=== PATIENT | male | born 1980 | race Caucasian/White ===

== ENCOUNTER 2017-01-16 23:31 | Inpatient (IN) | payer MEDICAID ==
[~2017-01-16] VITALS: Ht 172.7 cm; Wt 93.7 kg
[2017-01-17 01:29] LABS: BASOPHIL % 0.4 % (0-2); PLATELET COUNT 180 x10^3mcL (130-400); RED CELL DISTRIBUTION WIDTH 12.8 % (11.5-14.5)
[2017-01-17 01:40] LABS: CALCIUM 9.4 mg/dL (8.5-10.1); CARBON DIOXIDE 27.6 mmol/L (21-32); CHLORIDE SERUM 103 mmol/L (98-107); CREATININE SERUM 1.2 mg/dL (0.7-1.3); GFR1 > 60 mL/min; GLUCOSE SERUM 146 mg/dL (74-106); POTASSIUM SERUM 3.9 mmol/L (3.5-5.1); SODIUM SERUM 136 mmol/L (136-145)
[2017-01-17 01:48] LABS: ALBUMIN 4.1 g/dL (3.4-5.0); ALKALINE PHOSPHATASE 97 U/L (46-116); ALT/SGPT 29 U/L (16-63); AMYLASE 52 U/L (25-115); AST/SGOT 24 U/L (15-37); BILIRUBIN TOTAL 0.92 mg/dL (0.20-1.00); LIPASE 89 IU/L (73-393); TOTAL PROTEIN, SERUM 7.7 g/dL (6.4-8.2)
[2017-01-17 05:35] LABS: UA SPECIFIC GRAVITY >=1.030 (1.005-1.035); microscopic required? YES; urine erythrocyte NEGATIVE (NEGATIVE)
[2017-01-17 06:17] LABS: CHOLESTEROL/HDL RATIO 3.3; MAGNESIUM 2.3 mg/dL (1.8-2.4); PHOSPHOROUS 3.7 mg/dL (2.5-4.9)
[2017-01-17 06:22] LABS: FREE T4 0.88 ng/dL (0.76-1.46); FREE THYROXINE INDEX 2.2 ug/dL (1.4-4.5); T4(THYROXINE) 6.6 ug/dL (4.7-13.3)
[2017-01-17 06:28] LABS: AMPHETAMINE QUAL UR NONE DETECTED (NEG <=1000)
[2017-01-17 06:29] LABS: T3 TOTAL 1.13 ng/mL
[2017-01-17 08:24] VITALS: BP 125/85
[2017-01-17 13:22] VITALS: BP 110/73
[2017-01-17 18:21] VITALS: BP 111/63
[2017-01-17 22:05] VITALS: BP 105/64
[2017-01-18 06:23] VITALS: BP 103/64
[2017-01-18 06:31] LABS: BASOPHIL % 0.5 % (0-2); PLATELET COUNT 164 x10^3mcL (130-400)
[2017-01-18 06:49] LABS: CALCIUM 8.6 mg/dL (8.5-10.1); CARBON DIOXIDE 26.8 mmol/L (21-32); CHLORIDE SERUM 109 mmol/L (98-107); GFR1 > 60 mL/min; GLUCOSE SERUM 98 mg/dL (74-106); MAGNESIUM 2.2 mg/dL (1.8-2.4); PHOSPHOROUS 3.2 mg/dL (2.5-4.9); POTASSIUM SERUM 4.1 mmol/L (3.5-5.1); SODIUM SERUM 143 mmol/L (136-145)
[2017-01-18 07:41] VITALS: Ht 172.7 cm; Wt 93.7 kg
[2017-01-18 09:50] VITALS: BP 110/55
== END 2017-01-18 17:24 | disposition left against medical advice (07) | DRG 251 ==
LOC: ED 23:31 → DU 01-17 05:32 → MU 01-17 05:32 → DU 01-17 07:33 → MU 01-17 21:23
PROVIDERS: Emergency Medicine; ADMIT Family Medicine
DX: R10.13 Epigastric pain (principal); N17.0 Acute kidney failure with tubular necrosis; K56.60 Unspecified intestinal obstruction; N39.0 Urinary tract infection, site not specified; N20.0 Calculus of kidney; K56.7 Ileus, unspecified; K52.9 Noninfective gastroenteritis and colitis, unspecified; R11.2 Nausea with vomiting, unspecified; K57.90 Diverticulosis of intestine, part unspecified, without perforation or abscess without bleeding; E78.1 Pure hyperglyceridemia; E66.9 Obesity, unspecified; Z68.31 Body mass index [BMI] 31.0-31.9, adult; Z53.20 Procedure and treatment not carried out because of patient's decision for unspecified reasons; Z72.0 Tobacco use
CPT/HCPCS: 83880; 84439; C9113; J1170; J1885; J1956; J2270; J7030; Q0162; Q9967

== ENCOUNTER 2017-07-19 10:50 | Emergency (ER) | payer MEDICAID ==
[2017-07-19 11:12] VITALS: BP 112/79
== END 2017-07-19 13:03 | disposition home or self-care (01) ==
LOC: ED 10:50
DX: S83.91XA Sprain of unspecified site of right knee, initial encounter (principal); S46.912A Strain of unspecified muscle, fascia and tendon at shoulder and upper arm level, left arm, initial encounter; S46.911A Strain of unspecified muscle, fascia and tendon at shoulder and upper arm level, right arm, initial encounter; V49.49XA Driver injured in collision with other motor vehicles in traffic accident, initial encounter; Y93.89 Activity, other specified; Y99.8 Other external cause status; Y92.89 Other specified places as the place of occurrence of the external cause

== ENCOUNTER 2019-03-25 11:23 | Emergency (ER) | payer MEDICAID ==
[~2019-03-25] VITALS: Ht 170.2 cm; Wt 91.6 kg
[2019-03-25 11:28] VITALS: Ht 170.2 cm; Wt 91.6 kg
[2019-03-25 12:19] LABS: BASOPHIL % 0.4 % (0-2); PLATELET COUNT 173 x10^3mcL (130-400); RED CELL DISTRIBUTION WIDTH 13.1 % (11.5-14.5)
[2019-03-25 12:30] LABS: CALCIUM 9.4 mg/dL (8.5-10.1); CARBON DIOXIDE 26.4 mmol/L (21-32); CHLORIDE SERUM 105 mmol/L (98-107); GFR1 > 60 mL/min; GLUCOSE SERUM 101 mg/dL (74-106); SODIUM SERUM 140 mmol/L (136-145)
[2019-03-25 14:04] VITALS: BP 109/76
== END 2019-03-25 14:04 | disposition home or self-care (01) ==
LOC: ED 11:23
PROVIDERS: Emergency Medicine
DX: R10.9 Unspecified abdominal pain (principal); M54.6 Pain in thoracic spine; R11.0 Nausea; R19.7 Diarrhea, unspecified; Z90.89 Acquired absence of other organs
CPT/HCPCS: 36415